=== PATIENT | male | born 1940 | race Caucasian/White ===

== ENCOUNTER → 2020-11-19 03:03 | Outpatient (CLI) | payer MEDICARE, SELFPAY ==
[2020-11-19 17:43] LABS: SARS-CoV-2 RNA PCR Negative
== END ==
PROVIDERS: PCP Internal Medicine; Visit Provider Urology
DX: Z01.812 Encounter for preprocedural laboratory examination (principal); Z20.822 Contact with and (suspected) exposure to COVID-19
CPT/HCPCS: C9803; U0003; U0005

== ENCOUNTER 2020-11-19 09:10 | Outpatient (CLI) | payer MEDICARE, SELFPAY ==
--- NOTE | 2020-11-19 10:15 | ECG_ITS ---
Measurements Intervals Pep Rate: 50 P: ME: 0 QRS: 11 QRSD: 116 T: 54 QT: 416 QTc: 380 Interpretive Statements SINUS BRADYCARDIA WITH MARKED SINUS ARRHYTHMIA INTRAVENTRICULAR CONDUCTION DELAY BASELINE WANDER- V4-V6 BORDERLINE ECG Electronically Signed On 11-19-2020 10:00:25 CDT by Kurt Costello D.O.
== END 2020-11-19 09:11 | disposition home or self-care (01) ==
PROVIDERS: PCP Internal Medicine; Visit Provider Urology
DX: Z01.818 Encounter for other preprocedural examination (principal); Z01.810 Encounter for preprocedural cardiovascular examination; I10 Essential (primary) hypertension
CPT/HCPCS: 93005; C9803; U0003; U0005

== ENCOUNTER 2020-11-22 00:46 | Day surgery (SDC) | payer MEDICARE, SELFPAY ==
[2020-11-12 12:46] VITALS: BMI 26.4
--- NOTE | 2020-11-20 07:37 | P.HP_ITS ---
History of Present Illness History of Present Illness Consent: Risks, benefits, and alternatives have been discussed and questions answered. Patient agrees to proceed with procedure. Chief complaint: bladder cancer Narrative: Markell Garcia is a 80 year old male with a known history of urothelial carcinoma of the bladder. Recent surveillance cystoscopy showed a small recurrence in the right posterior lateral bladder wall. Review of Systems Cardiovascular: Cardiovascular: Denies chest pain, Denies lightheadedness, Denies palpitations and Denies dyspnea Respiratory: Respiratory: Denies dyspnea Gastrointestinal: Gastrointestinal: Denies diarrhea, Denies nausea and Denies vomiting Genitourinary: Genitourinary: Denies hematuria and Denies dysuria Endocrine: Endocrine: Denies palpitations PMFSH Family History Family History Sibling Hypertension Cerebrovascular accident Father Cerebrovascular accident Mother Family history of Parkinson's disease Other Family history of arthritis Social History Social History Smoking packs per day: 2 Smoking cigarettes per day: 40.0 Years smoked: 40 Smoking pack-years: 80.00 Smoking status: Former smoker Tobacco type: cigarettes Second hand tobacco smoke exposure: No Smoking end date: 06/08/89 Alcohol intake: current Substance use: never Substance use type: does not use Spiritual care concerns: No Meds Home Medications and Allergies Home Medications Medication Instructions Recorded Confirmed Type amlodipine 5 mg tablet 5 mg PO DAILY 05/16/19 11/12/20 History lisinopril 40 mg tablet 40 mg PO DAILY 05/16/19 11/12/20 History naproxen 500 mg tablet 1,000 mg PO BID tablet 05/16/19 11/12/20 History nebivolol 20 mg tablet 20 mg PO QAM 05/16/19 11/12/20 History rosuvastatin 5 mg tablet 5 mg PO EVERY OTHER DAY 05/16/19 11/12/20 History omeprazole 20 mg capsule,delayed 20 mg PO DAILY #90 cap 04/27/20 11/12/20 Rx release aspirin [Aspir-81] 81 mg PO DAILY 11/12/20 11/12/20 History cephalexin 500 mg DAILY 11/12/20 11/12/20 History cetirizine 10 mg PO DAILY 11/12/20 11/12/20 History docusate sodium [Colace] 100 mg PO BID 11/12/20 11/12/20 History glucosamine-chondroitin 900 mg PO QAM 11/12/20 11/12/20 History omega 4-fsg-roh-fish oil [Fish Oil] 1 cap PO QAM 11/12/20 11/12/20 History vitamin E 400 unit PO DAILY 11/12/20 11/12/20 History Allergies Allergy/AdvReac Type Severity Reaction Status Date / Time No Known Allergies Allergy Verified 11/12/20 12:35 Exam Const: General: no acute distress Resp: Effort & Inspection: normal respiratory effort GI: Inspection: non-distended GI Palp: No abdominal tenderness and No Guarding due to palpation present (GI) Auscultation: normal bowel sounds Assessment and Plan Assessment and plan (1) Cancer of overlapping sites of bladder: Code(s): C67.8 - Malignant neoplasm of overlapping sites of bladder Status: Acute Assessment and Plan: * TURBT with bilateral retrograde pyelogram and gemcitabine installation.
--- NOTE | 2020-11-21 09:55 | WPDANESEPPF ---
Anes - Initial Pre Proc Eval Procedure: Operation Date: 11/22/20 13:15 Proposed Procedures p Trans Urethral Resection Bladder Tumor - Jone Feliciano MD s Cystoscopy, Bilateral Retrograde Pyelogram with Gemcitabine Installation - Jone Feliciano MD Date/Time: 11/21/20 09:55 Surgeon: Jone Feliciano MD Pre Op Diagnosis: bladder cancer Patient Data Age: 80 Gender: M Height: 1.83 m Weight: 88.18 kg Allergies Allergy/AdvReac Type Severity Reaction Status Date / Time No Known Allergies Allergy Verified 11/22/20 11:20 Home Medications Medication Instructions Recorded Confirmed Type amlodipine 5 mg tablet 5 mg PO DAILY 05/16/19 11/22/20 History lisinopril 40 mg tablet 40 mg PO DAILY 05/16/19 11/22/20 History naproxen 500 mg tablet 1,000 mg PO BID tablet 05/16/19 11/22/20 History nebivolol 20 mg tablet 20 mg PO QAM 05/16/19 11/22/20 History rosuvastatin 5 mg tablet 5 mg PO EVERY OTHER DAY 05/16/19 11/22/20 History omeprazole 20 mg capsule,delayed 20 mg PO DAILY #90 cap 04/27/20 11/22/20 Rx release aspirin [Aspir-81] 81 mg PO DAILY 11/12/20 11/22/20 History cephalexin 500 mg DAILY 11/12/20 11/22/20 History cetirizine 10 mg PO DAILY 11/12/20 11/22/20 History docusate sodium [Colace] 100 mg PO BID 11/12/20 11/22/20 History glucosamine-chondroitin 900 mg PO QAM 11/12/20 11/22/20 History omega 8-dbn-mkf-fish oil [Fish Oil] 1 cap PO QAM 11/12/20 11/22/20 History vitamin E 400 unit PO DAILY 11/12/20 11/22/20 History Patient hx anesthesia problems: none Family hx anesthesia problems: none PMFSH Past Medical History Medical History (Updated 11/21/20 @ 09:57 by Florian Rico MD) Arthritis 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 CAD (coronary artery disease) Cancer of overlapping sites of bladder Chronic GERD Current moderate episode of major depressive disorder without prior episode Essential (primary) hypertension Hyperlipidemia Hypertensive heart disease without heart failure Obstructive sleep apnea (adult) (pediatric) Personal history of prostate cancer Surgical History Surgical History (Updated 11/21/20 @ 09:57 by Florian Rico MD) S/P CABG (coronary artery bypass graft) Family History Family History Sibling Hypertension Cerebrovascular accident Father Cerebrovascular accident Mother Family history of Parkinson's disease Other Family history of arthritis Social History Social History Smoking packs per day: 2 Smoking cigarettes per day: 40.0 Years smoked: 40 Smoking pack-years: 80.00 Smoking status: Former smoker Tobacco type: cigarettes Second hand tobacco smoke exposure: No Smoking end date: 06/08/89 Alcohol intake: current Substance use: never Substance use type: does not use Living arrangements: alone Spiritual care concerns: No Anes - Eval Final PreProcedure Day of Procedure 11/21/20 09:55 Patient weight: overweight Heart: regular rate and rhythm Lungs: clear to auscultation and normal air movement Airway: Mallampati scale class II Neurological: alert and oriented Last oral intake: >/= 8 hours ASA classification: III Emergent: no Anesthetic plan: proceed Anesthesia type and monitoring: general LMA Informed Consent: The patient's anesthetic plan and its attendant risks and benefits were discussed with the patient/family/POA. Questions were solicited and answers provided to the satisfaction of the patient/family/POA.
[2020-11-22] VITALS (10 sets, daily range): BP systolic 159–170; BP diastolic 58–89; PULSE 46–67; RESP 12–22; TEMP 35.9–37; O2SAT 95–100
--- NOTE | ~2020-11-22 | XR_ITS ---
EXAMINATION: XR retrograde pyelogram BI EXAM DATE: 11/22/2020 14:43 INDICATION: Bilateral retrograde pyelogram. TECHNIQUE: Fluoroscopy used during XR retrograde pyelogram BI performed by Dr. Jone Feliciano MD , urologist. The radiologist Vince Ross M.D. dictating this report of the image(s) available was no t present for the procedure. Total fluoroscopic time of 29 seconds. The DAP for this procedure was 637 radcm2. A total of 133 images sent to PACS from the exam. Cine run(s) available for review. FINDINGS: Right ureter was cannulated and injected. The ureter is unremarkable. Mild right-sided kaylen iectasis, hydronephrosis. Left ureter was then cannulated and injected, is normal in appearance. Mild left caliectasis, hydronephrosis. Correlate with procedure note. IMPRESSION: Mild bilateral caliectasis, hydronephrosis. Unremarkable ureters. Reviewed, dictated and finalized at location B.
--- NOTE | 2020-11-22 06:14 | WPDHPUPDATE1 ---
History and Physical Update Update Date/Time: 11/22/20 06:14 History and Physical has been reviewed, including an updated exam of the patient. There are NO changes in the patient's condition. Risks, benefits, and alternatives have been discussed and questions answered. Patient agrees to proceed with procedure.
[2020-11-22] MEDS: LACTATED RINGERS 1,000 ML 30 ML IV CONT (11:35)
[2020-11-22] MEDS: ceFAZolin 2 GM/D5W 50 ML 2 GM/50 ML BAG IVPB (14:11)
[2020-11-22] MEDS: SODIUM CHLORIDE 0.9% IV 23.7 ML, GEMCITABINE HCL 1,000 MG BLADDER ×2 (15:05→15:06)
--- NOTE | 2020-11-22 15:09 | P.OP_ITS ---
Procedure Note - Detailed Date of Procedure 11/22/20 Pre-op Diagnosis bladder cancer overlapping sites Post-op Diagnosis same Procedure Performed TURBT (small), bilateral RPG Surgeon Jone Feliciano MD [employer] None Anesthesia general Indications Recurrent bladder tumor Findings 1.5cm papillary bladder tumor right lat. wall Description of Procedure Patient is brought to the operative suite was prepped draped in routine sterile fashion while in a dorsal lithotomy position. Cystoscopy is undertaken with the 9 F rigid cystoscope. There is no urethral stricture. Prostatic urethra was approximately 2.5 cm. Urine was collected for culture upon entering the bladder. Bladder was carefully inspected. There is an area of papillary growth in the right lateral/ posterior bladder wall consistent with bladder tumor. Attempt is made to include detrusor muscle for pathological evaluation while resecting this lesion. Base and periphery were cauterized with both a loop ball electrode. Eight F up to catheter was used to obtain bilateral retrograde pyelograms showed no evidence of upper tract obstruction or filling defects. Scopes and wires were removed. Eighteen F urethral catheter was placed to straight drainage he was taken to the recovery room in good condition. Estimated Blood Loss 0 Drains No Packing No Pathology yes Complications No immediate complications Condition stable Disposition PACU
--- NOTE | 2020-11-22 15:36 | SUR.PHASEI ---
Addendum entered by Jamil Velazquez RN 11/22/20 15:46: PT IS HAVING BLADDER INSTILLATION AND HAVING TO ROLL ON HIS SIDE AFTER BEING ON HIS BACK FOR 20 MIN. AFTER 20 MIN ON BACK HE WENT TO LEFT SIDE. A FIB SHOWED UP WHILE HE WAS ON THE RIGHT. IRREGULAR HR OF THE MID 40'S. THEN WE SWITCHED TO RIGHT SIDE AND HE WENT BACK TO NS WITH REGULAR HR IN LOW 60'S. DR. NOVAK NOTIFIED. Original Note: DR NOVAK NOTIFIED OF ATRIAL FIBRILATION WITH RATE CONTROLLED. NO ORDERS AT THIS TIME.
--- NOTE | 2020-11-22 16:19 | SUR.PHASEI ---
INSTILATION OF BLADDER WAS DONE WITHOUT COMPLICATIONS.
== END 2020-11-22 17:00 | disposition home or self-care (01) ==
PROVIDERS: PCP Internal Medicine; Visit Provider Urology
PROC: 0TBB8ZZ Excision of Bladder, Via Natural or Artificial Opening Endoscopic (ICD-10-PCS; CPT 52234; principal; 2020-11-22 13:15)
PROC: (CPT 52352; 2020-11-22 13:15)
DX: C67.8 Malignant neoplasm of overlapping sites of bladder (principal); N13.30 Unspecified hydronephrosis; N28.89 Other specified disorders of kidney and ureter; I25.10 Atherosclerotic heart disease of native coronary artery without angina pectoris; I25.810 Atherosclerosis of coronary artery bypass graft(s) without angina pectoris; I11.9 Hypertensive heart disease without heart failure; K21.9 Gastro-esophageal reflux disease without esophagitis; F32.1 Major depressive disorder, single episode, moderate; E78.5 Hyperlipidemia, unspecified; G47.33 Obstructive sleep apnea (adult) (pediatric); Z85.46 Personal history of malignant neoplasm of prostate; Z79.82 Long term (current) use of aspirin; Z95.1 Presence of aortocoronary bypass graft; Z87.891 Personal history of nicotine dependence
CPT/HCPCS: 52234; 74420; 87086; 87088; 88305; C1758; C1769; J0690; J1100; J2405; J2704; J3010; J7120; J9201; Q9966